=== PATIENT | female | born 1940 | race Caucasian/White ===

== ENCOUNTER 2017-02-06 08:32 | Emergency (ER) | payer MEDICAID ==
[~2017-02-06] VITALS: Ht 157.5 cm; Wt 68.0 kg
[~2017-02-06 08:32] MED LIST: INSULIN
[2017-02-06] MEDS ORDERED: KETOROLAC 30MG/ML VIAL IV STA (10:02)
[2017-02-06 11:14] LABS: BASOPHILS % 0.5 % (0.0-2.0); HEMOGLOBIN. 12.7 g/dL (12.0-16.0); LYMPHOCYTES % 28.3 % (20.0-50.0); MEAN CORPUSCULAR HEMOGLOBIN 29.6 pg (28.0-32.0); MEAN CORPUSCULAR VOLUME 88.7 fL (81.0-99.0); MONOCYTES % 8.1 % (2.0-8.0); NEUTROPHILS % 62.1 % (40.0-76.0); PLATELET 238 x1000/uL (130-400); RED BLOOD CELL COUNT 4.29 mill/uL (4.2-5.4); RED CELL DISTRIBUTION WIDTH 13.7 % (11.6-14.6)
[2017-02-06 11:18] LABS: CHLORIDE 101 mEq/L (98-107)
[2017-02-06 11:23] LABS: CARBON DIOXIDE 31 mEq/L (21-32)
[2017-02-06 12:09] VITALS: BP 130/60
== END 2017-02-06 12:30 | disposition home or self-care (01) ==
LOC: ER 08:38
DX: R07.9 Chest pain, unspecified (principal); M54.12 Radiculopathy, cervical region; M19.90 Unspecified osteoarthritis, unspecified site; I50.9 Heart failure, unspecified; I25.10 Atherosclerotic heart disease of native coronary artery without angina pectoris; M85.80 Other specified disorders of bone density and structure, unspecified site; E11.9 Type 2 diabetes mellitus without complications; I10 Essential (primary) hypertension; Z79.4 Long term (current) use of insulin; Z95.1 Presence of aortocoronary bypass graft
CPT/HCPCS: 36415; 71010; 72125; 73030; 80053; 85025; 96374; 99285; J1885; Z7610

== ENCOUNTER 2018-06-24 23:48 | Emergency (ER) | payer MEDICAID ==
[~2018-06-24] VITALS: Ht 162.6 cm; Wt 100.0 kg
[2018-06-25 00:41] LABS: BASOPHILS % 0.4 % (0.0-2.0); EOSINOPHILS % 1.6 % (0.0-5.0); HEMOGLOBIN. 11.7 g/dL (12.0-16.0); LYMPHOCYTES % 25.3 % (20.0-50.0); MEAN CORPUSCULAR HEMOGLOBIN 29.9 pg (28.0-32.0); MEAN PLATELET VOLUME 9.5 fl (7.4-10.4); MONOCYTES % 9.3 % (2.0-8.0); NEUTROPHILS % 63.4 % (40.0-76.0); PLATELET 241 x1000/uL (130-400); RED BLOOD CELL COUNT 3.91 mill/uL (4.2-5.4); RED CELL DISTRIBUTION WIDTH 14.2 % (11.6-14.6)
[2018-06-25 00:46] LABS: CHLORIDE 101 mEq/L (98-107)
[2018-06-25 04:32] VITALS: BP 151/58
== END 2018-06-25 04:34 | disposition home or self-care (01) ==
LOC: ER 23:48
DX: E11.649 Type 2 diabetes mellitus with hypoglycemia without coma (principal); I11.9 Hypertensive heart disease without heart failure; I51.9 Heart disease, unspecified; H53.8 Other visual disturbances; Z89.511 Acquired absence of right leg below knee; Z79.4 Long term (current) use of insulin
CPT/HCPCS: 36415; 80053; 82962; 85025; 99283; Z7610

== ENCOUNTER 2018-07-16 20:06 | Inpatient (IN) | payer MEDICAID ==
[~2018-07-16] VITALS: Ht 149.9 cm; Wt 93.1 kg
[2018-07-16] MEDS ORDERED: SODIUM CHLORIDE 0.9% 1,000 ML IV ONE (20:34)
[2018-07-16] MEDS ORDERED: DEXTROSE 50% WATER 50ML SYRINGE IV ONE ×2 (20:45→22:00)
[2018-07-16 21:11] LABS: BASOPHILS % 0.5 % (0.0-2.0); EOSINOPHILS % 0.9 % (0.0-5.0); HEMATOCRIT. 28.6 % (36.0-48.0); HEMOGLOBIN. 9.5 g/dL (12.0-16.0); LYMPHOCYTES % 15.6 % (20.0-50.0); MEAN PLATELET VOLUME 9.5 fl (7.4-10.4); MONOCYTES % 10.1 % (2.0-8.0); NEUTROPHILS % 72.9 % (40.0-76.0); PLATELET 195 x1000/uL (130-400); RED BLOOD CELL COUNT 3.05 mill/uL (4.2-5.4); RED CELL DISTRIBUTION WIDTH 14.9 % (11.6-14.6)
[2018-07-16 21:14] LABS: CHLORIDE 101 mEq/L (98-107)
[2018-07-16 21:17] LABS: INR 1.1; PROTHROMBIN TIME 10.6 sec (9.1-11.1)
[2018-07-16] MEDS ORDERED: DEXT 5%/0.45% NACL KCL 20MEQ/L 1,000 ML IV ONE (21:58)
[2018-07-16 22:10] LABS: CLARITY URINE TURBID (CLEAR); COLOR URINE YELLOW (YELLOW); KETONES URINE TRACE (NEGATIVE); LEUKOCYTE ESTERASE URINE 3+ (NEGATIVE); NITRITE URINE POSITIVE (NEGATIVE); OCCULT BLOOD URINE 2+ (NEGATIVE); PROTEIN URINE TRACE (NEGATIVE); SPECIFIC GRAVITY URINE 1.016 (1.005-1.030); UROBILINOGEN URINE 0.2 E.U./dL (0.2-1.0)
[2018-07-16] MEDS ORDERED: KETOROLAC 15MG/ML VIAL IV PRN (22:30)
[2018-07-16] MEDS ORDERED: GUAIFENESIN 200MG/10ML SUGAR FREE UDC PO PRN (22:30)
[2018-07-16] MEDS ORDERED: NITROGLYCERIN 0.4MG TABLET SL SL PRN (22:30)
[2018-07-16] MEDS ORDERED: MAGNESIUM/ALUMINUM HYDROXIDE/SIMETHICONE 30ML UDC PO PRN (22:30)
[2018-07-16] MEDS ORDERED: IPRATROPIUM/ALBUTEROL 0.5-3(2.5)MG/3ML NEB INH PRN (22:30)
[2018-07-16] MEDS ORDERED: DEXTROSE 50% WATER 50ML SYRINGE IV PRN (22:30)
[2018-07-16] MEDS ORDERED: NA PHOS,M-B/NA PHOS,DI-BA ENEMA 118ML PR PRN (22:30)
[2018-07-16] MEDS ORDERED: CLONIDINE 0.1MG TABLET PO PRN (22:30)
[2018-07-16] MEDS ORDERED: ENOXAPARIN 40MG/0.4ML SYR SUBCUT SCH (22:30)
[2018-07-16] MEDS ORDERED: DOCUSATE SODIUM 100MG CAPSULE PO PRN (22:30)
[2018-07-16] MEDS ORDERED: ACETAMINOPHEN 325MG TABLET PO PRN (22:30)
[2018-07-16] MEDS ORDERED: ONDANSETRON HCL 4MG/2ML INJ IV PRN (22:30)
[2018-07-16] MEDS ORDERED: CEFTRIAXONE 1 G PREMIX 50 ML IV ONE (23:00)
[2018-07-17] VITALS (10 sets, daily range): BP systolic 128–175; BP diastolic 50–82
[2018-07-17] MEDS: BLOOD SUGAR DIAGNOSTIC STRIP TEST SCH ×4 (09:00→21:20)
[2018-07-17] MEDS ORDERED: CEFTRIAXONE 1 G PREMIX 50 ML IV SCH (09:00)
[2018-07-17] MEDS: METOPROLOL TARTRATE 25MG TABLET PO SCH ×2 (09:21→21:20)
[2018-07-17] MEDS: FAMOTIDINE 20MG TABLET PO SCH ×2 (09:21→21:19)
[2018-07-17] MEDS: ENOXAPARIN 40MG/0.4ML SYR SUBCUT SCH (09:23)
[2018-07-17] MEDS ORDERED: ZOLPIDEM TARTRATE 5MG TABLET PO PRN (12:00)
[2018-07-17] MEDS: INSULIN LISPRO 100 UNITS/ML SUBCUT SCH ×3 (13:00→21:00)
[2018-07-17] MEDS ORDERED: AMLO10TA80 PO (19:34)
[2018-07-17] MEDS ORDERED: TIMO5DRO32 EACHEYE (19:34)
[2018-07-17] MEDS ORDERED: LOSA100T14 PO (19:34)
[2018-07-17] MEDS ORDERED: SERT25TA74 MT (19:34)
[2018-07-17] MEDS ORDERED: METO-396 MT (19:34)
[2018-07-17] MEDS ORDERED: PIOG45TA18 MT (19:34)
[2018-07-17] MEDS ORDERED: ASPI-1158 MT (19:34)
[2018-07-17] MEDS ORDERED: METF-816 MT (19:34)
[2018-07-17] MEDS ORDERED: NPH,100V SQ (19:34)
[2018-07-17] MEDS ORDERED: GLIM2TAB2 MT (19:34)
[2018-07-17] MEDS ORDERED: ATOR40TA70 MT (19:34)
[2018-07-17] MEDS ORDERED: HYDR25TA MT (19:34)
[2018-07-18] VITALS (15 sets, daily range): BP systolic 109–151; BP diastolic 28–74
[2018-07-18] MEDS ORDERED: CEFTRIAXONE 1,000 MG in DEXTROSE 5% WATER 50 ML IV SCH ×2
[2018-07-18] MEDS: INSULIN LISPRO 100 UNITS/ML SUBCUT SCH ×2 (08:21→13:00)
[2018-07-18] MEDS: BLOOD SUGAR DIAGNOSTIC STRIP TEST SCH ×2 (08:21→12:49)
[2018-07-18] MEDS: FAMOTIDINE 20MG TABLET PO SCH (08:44)
[2018-07-18] MEDS: ENOXAPARIN 40MG/0.4ML SYR SUBCUT SCH (08:45)
[2018-07-18] MEDS: METOPROLOL TARTRATE 25MG TABLET PO SCH (08:45)
[2018-07-18] MEDS ORDERED: ENOXAPARIN 30MG/0.3ML SYR SUBCUT SCH (21:00)
== END 2018-07-18 17:05 | disposition home or self-care (01) | DRG 463 ==
LOC: ER 20:06 → 5EST 22:11 → EDBEDREQSVC 22:15 → EDBEDREQTM 22:15 → EDBEDREQ 22:15 → ENRESERV 07-17 10:33
PROVIDERS: ADMIT Internal Medicine; ATTEND Internal Medicine
DX: N39.0 Urinary tract infection, site not specified (principal); G92 Toxic encephalopathy; E44.0 Moderate protein-calorie malnutrition; E11.649 Type 2 diabetes mellitus with hypoglycemia without coma; E83.51 Hypocalcemia; D63.8 Anemia in other chronic diseases classified elsewhere; E87.1 Hypo-osmolality and hyponatremia; I10 Essential (primary) hypertension; I25.10 Atherosclerotic heart disease of native coronary artery without angina pectoris; W06.XXXA Fall from bed, initial encounter; Y93.89 Activity, other specified; Y92.89 Other specified places as the place of occurrence of the external cause; Y99.8 Other external cause status; Z79.4 Long term (current) use of insulin; Z89.511 Acquired absence of right leg below knee; Z90.711 Acquired absence of uterus with remaining cervical stump; Z95.1 Presence of aortocoronary bypass graft; Z68.41 Body mass index [BMI] 40.0-44.9, adult
CPT/HCPCS: 36415; 71045; 82962; 83605; 83880; 84484; 87077; 87186; 93005; 96365; 96375; 99285; J0696; J1650; J7030; J7050; J7060

== ENCOUNTER 2019-06-10 16:35 | Emergency (ER) | payer MEDICAID ==
[~2019-06-10] VITALS: Ht 157.5 cm; Wt 83.0 kg
[~2019-06-10 16:35] MED LIST changes: +AMLO10TA80 PO; +ASPI-1158 MT; +ATOR40TA70 MT; +GLIM2TAB30 MT; +HYDR25TA MT; +LOSA100T32 PO; +METF-816 MT; +METO-396 MT; +NPH,100V SQ; +PIOG45TA62 MT; +SERT25TA74 MT; +TIMO5DRO32 EACHEYE
[2019-06-10 18:45] VITALS: BP 142/63
== END 2019-06-10 18:45 | disposition home or self-care (01) ==
LOC: ER 16:35
DX: S80.221A Blister (nonthermal), right knee, initial encounter (principal); E11.9 Type 2 diabetes mellitus without complications; Z79.899 Other long term (current) drug therapy; Z79.4 Long term (current) use of insulin; Z90.710 Acquired absence of both cervix and uterus; X58.XXXA Exposure to other specified factors, initial encounter; Y93.89 Activity, other specified; Y92.89 Other specified places as the place of occurrence of the external cause; Y99.8 Other external cause status
CPT/HCPCS: 99283